=== PATIENT | male | born 1990 | race Caucasian/White ===

== ENCOUNTER 2017-05-23 19:32 | Emergency (ER) | payer OTHER ==
[~2017-05-23] VITALS: Ht 188 cm; Wt 83.3 kg
[~2017-05-23 19:32] MED LIST: BENADRYL25 MG PO; CLONAZEPAM1 MG PO; HYDROCORTISONE30 G2 TP; HYDROXYZINE HCL50 MG PO; MELATONIN3 MG PO; NAPROXEN SODIU220 M1 PO; NYQUIL D COLD295 ML PO
[2017-05-23] MEDS ORDERED: ATARAX,VISTARIL50 MG PO (20:11)
[2017-05-23] MEDS ORDERED: REMERON30 M2 PO (20:11)
[2017-05-23 20:36] VITALS: BP 100/78
== END 2017-05-23 20:36 | disposition home or self-care (01) ==
LOC: EME 19:32
DX: F32.9 Major depressive disorder, single episode, unspecified (principal); Z76.0 Encounter for issue of repeat prescription; F41.9 Anxiety disorder, unspecified; Z88.0 Allergy status to penicillin
CPT/HCPCS: 99281; 99283

== ENCOUNTER 2017-06-04 20:56 | Emergency (ER) | payer OTHER ==
[~2017-06-04] VITALS: Ht 188 cm; Wt 82.5 kg
[~2017-06-04 20:56] MED LIST changes: +ATARAX,VISTARIL50 MG PO; +REMERON30 M2 PO
[2017-06-04 21:05] VITALS: BP 129/77
[2017-06-04] MEDS ORDERED: ATARAX,VISTARIL50 MG PO (21:52)
[2017-06-04] MEDS ORDERED: REMERON30 M1 PO (21:53)
== END 2017-06-04 22:50 | disposition home or self-care (01) ==
LOC: EME 20:56
DX: Z76.0 Encounter for issue of repeat prescription (principal); F41.9 Anxiety disorder, unspecified; F17.200 Nicotine dependence, unspecified, uncomplicated; Z88.0 Allergy status to penicillin; Z88.8 Allergy status to other drugs, medicaments and biological substances
CPT/HCPCS: 99281; 99284; Q0177

== ENCOUNTER 2017-09-18 19:07 | Emergency (ER) | payer OTHER ==
[~2017-09-18] VITALS: Ht 188 cm; Wt 80.9 kg
[~2017-09-18 19:07] MED LIST changes: +REMERON30 M1 PO
[2017-09-18 19:15] VITALS: BP 114/86
[2017-09-18 20:26] LABS: HEMATOCRIT 46.9 % (38.0-50.0); HEMOGLOBIN 16.5 G/DL (12.5-16.6); MCHC 35.2 G/DL (30.0-36.0); MCV 90.9 FL (86-99); PLATELET COUNT 238 K/uL (156-360); RBC DIS.WIDTH-CV 12.9 % (11.8-14.6); RBC DIS.WIDTH-SD 42.6 % (39-53); RED BLOOD COUNT 5.16 M/uL (4.00-5.50); WHITE BLOOD COUNT 5.9 K/uL (4.1-10.2)
[2017-09-18 20:36] LABS: CHLORIDE 106 mEq/L (99-109); SODIUM 140 mEq/L (136-147)
[2017-09-18 20:38] LABS: GLUCOSE 77 mg/dL (70-99)
[2017-09-18 20:42] LABS: CREATININE 0.9 mg/dL (0.6-1.3); GFR ESTIMATE (CALCULATED) > 59 mL/min/ (58.99-99999)
[2017-09-18 20:43] LABS: UREA NITROGEN (BUN) 9 mg/dL (9-23)
[2017-09-18 20:48] LABS: TROP-I INTERPRETATION NEGATIVE; TROPONIN-I < 0.01 ng/mL (0.0-0.30)
[2017-09-18 21:53] LABS: D-DIMER ELISA < 150.00 ng/mLDDU (<230)
[2017-09-18 22:18] LABS: ALBUMIN 4.8 g/dL (3.2-4.8)
[2017-09-18 22:21] LABS: TOTAL PROTEIN 7.5 g/dL (6.4-8.3)
[2017-09-18 22:22] LABS: TOTAL BILIRUBIN 1.2 mg/dL (0.0-1.0)
[2017-09-18 22:23] LABS: ALKALINE PHOSPHATASE 71 IU/L (3-129)
[2017-09-18 22:26] LABS: AST (GOT) 18 IU/L (2-34); DIRECT BILIRUBIN 0.4 mg/dL (0.0-0.3)
[2017-09-18 22:27] LABS: ALT (GPT) 15 IU/L (3-49); LIPASE 11 U/L (1.0-51.0)
== END 2017-09-18 23:12 | disposition home or self-care (01) ==
LOC: EME 19:07
PROVIDERS: Emergency Medicine
DX: R07.9 Chest pain, unspecified (principal); F14.10 Cocaine abuse, uncomplicated; F17.200 Nicotine dependence, unspecified, uncomplicated; F43.10 Post-traumatic stress disorder, unspecified; F31.9 Bipolar disorder, unspecified; Z88.0 Allergy status to penicillin
CPT/HCPCS: 71046; 80048; 80076; 83690; 84484; 85027; 85379; 93005; 99281; 99284

== ENCOUNTER 2017-09-25 03:48 | Emergency (ER) | payer OTHER ==
[~2017-09-25] VITALS: Ht 188 cm; Wt 80.6 kg
[2017-09-25 06:07] VITALS: BP 125/82
== END 2017-09-25 06:07 | disposition home or self-care (01) ==
LOC: EME → EDBD 03:48 → EME 03:48
DX: R07.9 Chest pain, unspecified (principal); Z73.3 Stress, not elsewhere classified; F12.90 Cannabis use, unspecified, uncomplicated; Z88.0 Allergy status to penicillin; F17.200 Nicotine dependence, unspecified, uncomplicated
CPT/HCPCS: 93005; 99281; 99284

== ENCOUNTER 2017-09-25 19:53 | Emergency (ER) | payer OTHER ==
[~2017-09-25] VITALS: Ht 188 cm; Wt 77.7 kg
[2017-09-25 21:42] LABS: HEMATOCRIT 46.6 % (38.0-50.0); HEMOGLOBIN 16.7 G/DL (12.5-16.6); MCH 32.4 PG (29.0-34.0); MCHC 35.8 G/DL (30.0-36.0); MCV 90.3 FL (86-99); PLATELET COUNT 211 K/uL (156-360); RBC DIS.WIDTH-CV 12.8 % (11.8-14.6); RBC DIS.WIDTH-SD 42.1 % (39-53); RED BLOOD COUNT 5.16 M/uL (4.00-5.50); WHITE BLOOD COUNT 8.3 K/uL (4.1-10.2)
[2017-09-25 21:51] LABS: CHLORIDE 101 mEq/L (99-109); POTASSIUM 3.4 mEq/L (3.7-5.4); SODIUM 137 mEq/L (136-147)
[2017-09-25 21:53] LABS: GLUCOSE 81 mg/dL (70-99)
[2017-09-25 21:56] LABS: GFR ESTIMATE (CALCULATED) > 59 mL/min/ (58.99-99999)
[2017-09-25 21:57] LABS: UREA NITROGEN (BUN) 10 mg/dL (9-23)
[2017-09-25 22:03] LABS: TROP-I INTERPRETATION NEGATIVE; TROPONIN-I < 0.01 ng/mL (0.0-0.30)
[2017-09-25 22:15] VITALS: BP 105/70
[2017-09-25 22:49] LABS: AMPHETAMINE NEGATIVE (500 ng/mL); COCAINE PRESUMPTIVE POSITIVE (150 ng/mL); METHAMPHETAMINE NEGATIVE (500 ng/mL); OPIATES (MORPHINE) NEGATIVE (100 ng/mL); PHENCYCLIDINE NEGATIVE (25 ng/mL); THC CANNABINOIDS PRESUMPTIVE POSITIVE (50 ng/mL); TRICYCLIC ANTIDEPRESSANTS NEGATIVE (300 ng/mL)
[2017-09-25 22:50] LABS: BARBITURATES NEGATIVE (200 ng/mL); BENZODIAZEPINES PRESUMPTIVE POSITIVE (150 ng/mL); BUPRENORPHINE NEGATIVE (10 ng/mL); METHADONE NEGATIVE (200 ng/mL); OXYCODONE NEGATIVE (100 ng/mL); PROPOXYPHENE NEGATIVE (300 ng/mL)
[2017-09-25 23:31] LABS: BENZODIAZEPINES, URINE SCREEN Negative (200 ng/mL)
== END 2017-09-25 23:04 | disposition left against medical advice (07) ==
LOC: EME 19:53
PROVIDERS: Emergency Medicine
DX: F41.9 Anxiety disorder, unspecified (principal); R07.9 Chest pain, unspecified; Z53.20 Procedure and treatment not carried out because of patient's decision for unspecified reasons; F12.90 Cannabis use, unspecified, uncomplicated; F31.9 Bipolar disorder, unspecified; Z88.0 Allergy status to penicillin
CPT/HCPCS: 80048; 84484; 84999; 85027; 93005; 99281; 99283

== ENCOUNTER 2017-09-30 01:56 | Emergency (ER) | payer OTHER ==
[~2017-09-30] VITALS: Ht 188 cm; Wt 79.1 kg
[2017-09-30 03:23] LABS: HEMATOCRIT 43.9 % (38.0-50.0); HEMOGLOBIN 15.6 G/DL (12.5-16.6); MCH 32.3 PG (29.0-34.0); MCHC 35.5 G/DL (30.0-36.0); MCV 90.9 FL (86-99); PLATELET COUNT 206 K/uL (156-360); RBC DIS.WIDTH-CV 12.8 % (11.8-14.6); RBC DIS.WIDTH-SD 42.5 % (39-53); RED BLOOD COUNT 4.83 M/uL (4.00-5.50); WHITE BLOOD COUNT 5.1 K/uL (4.1-10.2)
[2017-09-30 03:29] LABS: CHLORIDE 107 mEq/L (99-109); POTASSIUM 3.7 mEq/L (3.7-5.4); SODIUM 142 mEq/L (136-147)
[2017-09-30 03:30] LABS: GLUCOSE 56 mg/dL (70-99)
[2017-09-30 03:34] LABS: GFR ESTIMATE (CALCULATED) > 59 mL/min/ (58.99-99999)
[2017-09-30 03:35] LABS: UREA NITROGEN (BUN) 8 mg/dL (9-23)
[2017-09-30 03:40] LABS: TROP-I INTERPRETATION NEGATIVE; TROPONIN-I < 0.01 ng/mL (0.0-0.30)
[2017-09-30 04:15] VITALS: BP 99/68
== END 2017-09-30 04:15 | disposition home or self-care (01) ==
LOC: EME → EDBD 01:56 → EME 04:15
PROVIDERS: Emergency Medicine
DX: F41.1 Generalized anxiety disorder (principal); R07.89 Other chest pain; T75.89XA Other specified effects of external causes, initial encounter; F31.9 Bipolar disorder, unspecified; F43.10 Post-traumatic stress disorder, unspecified; F32.9 Major depressive disorder, single episode, unspecified; F17.200 Nicotine dependence, unspecified, uncomplicated; Z98.890 Other specified postprocedural states; Z88.0 Allergy status to penicillin; Z88.8 Allergy status to other drugs, medicaments and biological substances
CPT/HCPCS: 71046; 80048; 84484; 85027; 93005; 99281; 99284

== ENCOUNTER 2017-10-05 19:22 | Emergency (ER) | payer OTHER ==
[~2017-10-05] VITALS: Ht 188 cm; Wt 80.2 kg
[2017-10-05 20:13] LABS: HEMATOCRIT 44.6 % (38.0-50.0); HEMOGLOBIN 16.1 G/DL (12.5-16.6); MCH 32.4 PG (29.0-34.0); MCHC 36.1 G/DL (30.0-36.0); MCV 89.7 FL (86-99); PLATELET COUNT 208 K/uL (156-360); RBC DIS.WIDTH-CV 12.5 % (11.8-14.6); RBC DIS.WIDTH-SD 41.2 % (39-53); RED BLOOD COUNT 4.97 M/uL (4.00-5.50); WHITE BLOOD COUNT 7.2 K/uL (4.1-10.2)
[2017-10-05 20:23] LABS: CHLORIDE 107 mEq/L (99-109); POTASSIUM 3.8 mEq/L (3.7-5.4); SODIUM 143 mEq/L (136-147)
[2017-10-05 20:25] LABS: GLUCOSE 75 mg/dL (70-99)
[2017-10-05 20:29] LABS: CREATININE 0.9 mg/dL (0.6-1.3); GFR ESTIMATE (CALCULATED) > 59 mL/min/ (58.99-99999)
[2017-10-05 20:30] LABS: UREA NITROGEN (BUN) 10 mg/dL (9-23)
[2017-10-05 20:34] LABS: TROP-I INTERPRETATION NEGATIVE; TROPONIN-I < 0.01 ng/mL (0.0-0.30)
[2017-10-05 22:11] LABS: AMPHETAMINE NEGATIVE (500 ng/mL); BARBITURATES NEGATIVE (200 ng/mL); BENZODIAZEPINES NEGATIVE (150 ng/mL); BUPRENORPHINE NEGATIVE (10 ng/mL); COCAINE PRESUMPTIVE POSITIVE (150 ng/mL); METHADONE NEGATIVE (200 ng/mL); METHAMPHETAMINE NEGATIVE (500 ng/mL); OPIATES (MORPHINE) NEGATIVE (100 ng/mL); OXYCODONE NEGATIVE (100 ng/mL); PHENCYCLIDINE NEGATIVE (25 ng/mL); PROPOXYPHENE NEGATIVE (300 ng/mL); THC CANNABINOIDS PRESUMPTIVE POSITIVE (50 ng/mL); TRICYCLIC ANTIDEPRESSANTS NEGATIVE (300 ng/mL)
[2017-10-05] MEDS ORDERED: ATIVAN0.5 MG PO (22:20)
[2017-10-05 22:38] VITALS: BP 118/78
== END 2017-10-05 22:39 | disposition home or self-care (01) ==
LOC: EME 19:22
PROVIDERS: Physician Assistant
DX: R07.9 Chest pain, unspecified (principal); F41.9 Anxiety disorder, unspecified; F32.9 Major depressive disorder, single episode, unspecified; F31.9 Bipolar disorder, unspecified; F43.10 Post-traumatic stress disorder, unspecified; F17.200 Nicotine dependence, unspecified, uncomplicated; Z88.0 Allergy status to penicillin; Z88.8 Allergy status to other drugs, medicaments and biological substances
CPT/HCPCS: 71046; 80048; 84484; 84999; 85027; 93005; 99281; 99285

== ENCOUNTER 2017-10-07 13:58 | Emergency (ER) | payer OTHER ==
[~2017-10-07] VITALS: Ht 188 cm; Wt 79.6 kg
[~2017-10-07 13:58] MED LIST changes: +ATIVAN0.5 MG PO
[2017-10-07 14:34] LABS: HEMATOCRIT 46.1 % (38.0-50.0); HEMOGLOBIN 16.8 G/DL (12.5-16.6); MCH 32.5 PG (29.0-34.0); MCHC 36.4 G/DL (30.0-36.0); MCV 89.2 FL (86-99); PLATELET COUNT 236 K/uL (156-360); RBC DIS.WIDTH-CV 12.4 % (11.8-14.6); RBC DIS.WIDTH-SD 41.1 % (39-53); RED BLOOD COUNT 5.17 M/uL (4.00-5.50); WHITE BLOOD COUNT 6.2 K/uL (4.1-10.2)
[2017-10-07 14:43] LABS: AMPHETAMINE NEGATIVE (500 ng/mL); BARBITURATES NEGATIVE (200 ng/mL); BENZODIAZEPINES NEGATIVE (150 ng/mL); BUPRENORPHINE NEGATIVE (10 ng/mL); COCAINE PRESUMPTIVE POSITIVE (150 ng/mL); METHADONE NEGATIVE (200 ng/mL); METHAMPHETAMINE NEGATIVE (500 ng/mL); OPIATES (MORPHINE) NEGATIVE (100 ng/mL); OXYCODONE NEGATIVE (100 ng/mL); PHENCYCLIDINE NEGATIVE (25 ng/mL); PROPOXYPHENE NEGATIVE (300 ng/mL); THC CANNABINOIDS NEGATIVE (50 ng/mL); TRICYCLIC ANTIDEPRESSANTS NEGATIVE (300 ng/mL)
[2017-10-07 14:44] LABS: ALBUMIN 4.8 g/dL (3.2-4.8); CHLORIDE 107 mEq/L (99-109); POTASSIUM 3.7 mEq/L (3.7-5.4); SODIUM 139 mEq/L (136-147)
[2017-10-07 14:46] LABS: TOTAL PROTEIN 7.6 g/dL (6.4-8.3)
[2017-10-07 14:48] LABS: TOTAL BILIRUBIN 1.2 mg/dL (0.0-1.0)
[2017-10-07 14:49] LABS: GLUCOSE 95 mg/dL (70-99); SERUM ETHYL ALCOHOL < 10 mg/dL
[2017-10-07 14:50] LABS: ALKALINE PHOSPHATASE 64 IU/L (3-129); CREATININE 0.9 mg/dL (0.6-1.3); GFR ESTIMATE (CALCULATED) > 59 mL/min/ (58.99-99999)
[2017-10-07 14:51] LABS: AST (GOT) 18 IU/L (2-34); UREA NITROGEN (BUN) 10 mg/dL (9-23)
[2017-10-07 14:53] LABS: ALT (GPT) 16 IU/L (3-49)
[2017-10-07 14:56] LABS: TROP-I INTERPRETATION NEGATIVE; TROPONIN-I < 0.01 ng/mL (0.0-0.30)
[2017-10-07 15:40] VITALS: BP 109/79
== END 2017-10-07 15:43 | disposition home or self-care (01) ==
LOC: EME 13:58
PROVIDERS: Emergency Medicine
DX: F41.9 Anxiety disorder, unspecified (principal); F14.90 Cocaine use, unspecified, uncomplicated; F12.90 Cannabis use, unspecified, uncomplicated; F31.9 Bipolar disorder, unspecified; F32.9 Major depressive disorder, single episode, unspecified; Z88.0 Allergy status to penicillin; Z88.8 Allergy status to other drugs, medicaments and biological substances; F17.200 Nicotine dependence, unspecified, uncomplicated
CPT/HCPCS: 80053; 84484; 84999; 85027; 99281; 99284; G0480

== ENCOUNTER 2017-12-10 14:45 | Emergency (ER) | payer OTHER ==
[~2017-12-10] VITALS: Ht 188 cm; Wt 75.8 kg
[2017-12-10 16:04] LABS: APPEARANCE CLEAR ((CLEAR)); BILIRUBIN NEGATIVE; BLOOD NEGATIVE; COLOR STRAW ((YELLOW)); GLUCOSE (STRIP) NEGATIVE; KETONES NEGATIVE; LEUKOCYTES NEGATIVE; NITRITE NEGATIVE; PROTEIN (STRIP) NEGATIVE; SPECIFIC GRAVITY 1.008 (1.000-1.030); UROBILINOGEN 0.2 MG/DL (0.2-1.0)
[2017-12-10 16:12] LABS: HEMATOCRIT 43.3 % (38.0-50.0); HEMOGLOBIN 15.7 G/DL (12.5-16.6); MCH 33.1 PG (29.0-34.0); MCHC 36.3 G/DL (30.0-36.0); MCV 91.2 FL (86-99); PLATELET COUNT 211 K/uL (156-360); RBC DIS.WIDTH-CV 12.7 % (11.8-14.6); RBC DIS.WIDTH-SD 42.5 % (39-53); RED BLOOD COUNT 4.75 M/uL (4.00-5.50); WHITE BLOOD COUNT 4.2 K/uL (4.1-10.2)
[2017-12-10 16:35] LABS: ALBUMIN 4.4 g/dL (3.2-4.8)
[2017-12-10 16:36] LABS: CHLORIDE 108 mEq/L (99-109); POTASSIUM 4.1 mEq/L (3.7-5.4); SODIUM 139 mEq/L (136-147)
[2017-12-10 16:38] LABS: GLUCOSE 83 mg/dL (70-99); TOTAL PROTEIN 6.8 g/dL (6.4-8.3)
[2017-12-10 16:40] LABS: TOTAL BILIRUBIN 0.5 mg/dL (0.0-1.0)
[2017-12-10 16:41] LABS: ALKALINE PHOSPHATASE 59 IU/L (3-129)
[2017-12-10 16:42] LABS: CREATININE 0.8 mg/dL (0.6-1.3); GFR ESTIMATE (CALCULATED) > 59 mL/min/ (58.99-99999)
[2017-12-10 16:43] LABS: AST (GOT) 14 IU/L (2-34); UREA NITROGEN (BUN) 13 mg/dL (9-23)
[2017-12-10 16:45] LABS: ALT (GPT) 16 IU/L (3-49); LIPASE 41 U/L (1.0-51.0)
[2017-12-10] MEDS ORDERED: BENTYL20 MG PO (17:13)
[2017-12-10] MEDS ORDERED: MIRALAX17 GM PO (17:13)
[2017-12-10 17:29] VITALS: BP 105/58
== END 2017-12-10 17:29 | disposition home or self-care (01) ==
LOC: EME 14:45
PROVIDERS: Physician Assistant
DX: R10.33 Periumbilical pain (principal); F12.90 Cannabis use, unspecified, uncomplicated; F32.9 Major depressive disorder, single episode, unspecified; F41.9 Anxiety disorder, unspecified; Z88.0 Allergy status to penicillin; F17.200 Nicotine dependence, unspecified, uncomplicated
CPT/HCPCS: 80053; 81003; 83690; 85027; 99281; 99283